=== PATIENT | female | born 1980 | race Caucasian/White ===

== ENCOUNTER 2017-01-11 08:39 | Emergency (ER) | payer MEDICAID ==
[~2017-01-11] VITALS: Ht 124.5 cm; Wt 84.0 kg
[~2017-01-11 08:39] MED LIST: [UNRECOGNIZED DRUG - REMARK]
[2017-01-11] MEDS ORDERED: SODIUM CHLORIDE 0.9% 1,000 ML IV ONE (08:58)
[2017-01-11] MEDS ORDERED: KETOROLAC 30MG/ML VIAL IV ONE (09:00)
[2017-01-11 09:17] LABS: BASOPHILS % 0.3 % (0.0-2.0); EOSINOPHILS % 0.9 % (0.0-5.0); HEMATOCRIT. 42.5 % (36.0-48.0); HEMOGLOBIN. 14.2 g/dL (12.0-16.0); LYMPHOCYTES % 22.4 % (20.0-50.0); MEAN CORPUSCULAR HEMOGLOBIN 31.1 pg (28.0-32.0); MEAN CORPUSCULAR VOLUME 92.8 fL (81.0-99.0); MEAN PLATELET VOLUME 7.5 fl (7.4-10.4); MONOCYTES % 6.5 % (2.0-8.0); NEUTROPHILS % 69.9 % (40.0-76.0); PLATELET 241 x1000/uL (130-400); RED BLOOD CELL COUNT 4.59 mill/uL (4.2-5.4); RED CELL DISTRIBUTION WIDTH 12.4 % (11.6-14.6)
[2017-01-11 09:22] LABS: PARTIAL THROMBOPLASTIN TIME 26.8 sec (23.4-31.0); PROTHROMBIN TIME 10.6 sec (9.4-11.6)
[2017-01-11 09:29] LABS: CARBON DIOXIDE 27 mEq/L (21-32); CHLORIDE 106 mEq/L (98-107); TROPONIN I < 0.02 ng/mL (0.00-0.04)
[2017-01-11 09:53] LABS: HCG SCREEN NEGATIVE
[2017-01-11] MEDS ORDERED: POTASSIUM CHLORIDE 20MEQ TABLET SR PO ONE (10:15)
[2017-01-11 14:44] VITALS: BP 124/69
== END 2017-01-11 14:49 | disposition home or self-care (01) ==
LOC: ER 08:57
DX: M54.12 Radiculopathy, cervical region (principal); R07.9 Chest pain, unspecified
CPT/HCPCS: 36415; 71010; 72050; 80053; 83690; 83880; 84484; 84703; 85025; 85610; 85730; 93005; 96361; 96374; 99285; J1885; J7030

== ENCOUNTER 2018-05-23 17:37 | Emergency (ER) | payer MEDICAID ==
[~2018-05-23] VITALS: Ht 162.6 cm; Wt 62.0 kg
[2018-05-23 21:25] LABS: BASOPHILS % 0.3 % (0.0-2.0); EOSINOPHILS % 1.3 % (0.0-5.0); HEMATOCRIT. 36.5 % (36.0-48.0); HEMOGLOBIN. 12.1 g/dL (12.0-16.0); LYMPHOCYTES % 25.7 % (20.0-50.0); MEAN CORPUSCULAR HEMOGLOBIN 30.3 pg (28.0-32.0); MEAN CORPUSCULAR VOLUME 91.3 fL (81.0-99.0); MEAN PLATELET VOLUME 7.5 fl (7.4-10.4); MONOCYTES % 7.9 % (2.0-8.0); NEUTROPHILS % 64.8 % (40.0-76.0); PLATELET 294 x1000/uL (130-400); RED CELL DISTRIBUTION WIDTH 13.3 % (11.6-14.6)
[2018-05-23 21:30] LABS: CHLORIDE 111 mEq/L (98-107)
[2018-05-23 21:38] LABS: CREATINE KINASE 68 IU/L (26-192)
[2018-05-23 21:47] LABS: CLARITY URINE TURBID (CLEAR); COLOR URINE YELLOW (YELLOW); KETONES URINE NEGATIVE (NEGATIVE); LEUKOCYTE ESTERASE URINE 2+ (NEGATIVE); NITRITE URINE NEGATIVE (NEGATIVE); OCCULT BLOOD URINE NEGATIVE (NEGATIVE); PROTEIN URINE NEGATIVE (NEGATIVE); SPECIFIC GRAVITY URINE 1.019 (1.005-1.030)
[2018-05-23 22:20] VITALS: BP 105/77
== END 2018-05-23 22:32 | disposition home or self-care (01) ==
LOC: ER 17:37
DX: G72.9 Myopathy, unspecified (principal); N39.0 Urinary tract infection, site not specified; I10 Essential (primary) hypertension
CPT/HCPCS: 36415; 80048; 81025; 82550; 99283

== ENCOUNTER 2019-06-26 13:26 | Inpatient (IN) | payer MEDICAID ==
[~2019-06-26] VITALS: Ht 157.5 cm; Wt 76.3 kg
[2019-06-26] MEDS ORDERED: KETOROLAC 30MG/ML VIAL IV STA (15:58)
[2019-06-26 16:25] LABS: BASOPHILS % 0.3 % (0.0-2.0); EOSINOPHILS % 0.5 % (0.0-5.0); HEMATOCRIT. 39.9 % (36.0-48.0); HEMOGLOBIN. 13.8 g/dL (12.0-16.0); LYMPHOCYTES % 13.7 % (20.0-50.0); MEAN CORPUSCULAR HEMOGLOBIN 32.1 pg (28.0-32.0); MEAN CORPUSCULAR VOLUME 92.5 fL (81.0-99.0); MEAN PLATELET VOLUME 7.5 fl (7.4-10.4); MONOCYTES % 4.9 % (2.0-8.0); NEUTROPHILS % 80.6 % (40.0-76.0); PLATELET 305 x1000/uL (130-400); RED BLOOD CELL COUNT 4.31 mill/uL (4.2-5.4); RED CELL DISTRIBUTION WIDTH 14.1 % (11.6-14.6)
[2019-06-26 16:29] LABS: HCG SCREEN NEGATIVE
[2019-06-26 16:30] LABS: CHLORIDE 106 mEq/L (98-107)
[2019-06-26 16:31] LABS: INR 0.9; PROTHROMBIN TIME 10.2 sec (9.6-11.0)
[2019-06-26 16:48] LABS: CLARITY URINE CLEAR (CLEAR); COLOR URINE ORANGE (YELLOW); KETONES URINE NEGATIVE (NEGATIVE); LEUKOCYTE ESTERASE URINE TRACE (NEGATIVE); NITRITE URINE POSITIVE (NEGATIVE); OCCULT BLOOD URINE NEGATIVE (NEGATIVE); PROTEIN URINE NEGATIVE (NEGATIVE); SPECIFIC GRAVITY URINE 1.008 (1.005-1.030)
[2019-06-26] MEDS ORDERED: CEFTRIAXONE 1 G PREMIX 50 ML IV ONE (18:15)
[2019-06-26] MEDS ORDERED: IOHEXOL-300 100 ML BOTTLE ONE (19:07)
[2019-06-26] MEDS ORDERED: MORPHINE SULFATE 2 MG/ML CPJ (NOT FOR IM USE) IV ONE (20:45)
[2019-06-26] MEDS ORDERED: SODIUM CHLORIDE 0.9% 1,000 ML IV ONE (20:45)
[2019-06-27] MEDS ORDERED: MORPHINE SULFATE 4 MG/ML CPJ (NOT FOR IM USE) IV PRN (01:25)
[2019-06-27] MEDS ORDERED: SODIUM CHLORIDE 0.9% 1,000 ML IV ONE ×2 (01:26→15:30)
[2019-06-27 04:30] VITALS: BP 90/35
[2019-06-27] MEDS ORDERED: IBUP-2077 PO (06:22)
[2019-06-27] MEDS: SODIUM CHLORIDE 0.9% 1,000 ML IV SCH ×2 (06:45→16:45)
[2019-06-27 08:00] VITALS: BP 94/61
[2019-06-27] MEDS: HYDROCODONE/ACETAMINOPHEN 10/325MG TABLET PO PRN (08:23)
[2019-06-27 12:00] VITALS: BP 97/57
[2019-06-27] MEDS: MORPHINE SULFATE 2 MG/ML CPJ (NOT FOR IM USE) IV PRN (12:46)
[2019-06-27] MEDS ORDERED: FENTANYL CITRATE/PF 50MCG/ML 2ML VIAL ONE (14:18)
[2019-06-27] MEDS ORDERED: MIDAZOLAM HCL 2 MG/2 ML VIAL ONE (14:19)
[2019-06-27] MEDS ORDERED: LIDOCAINE HCL 1% 20ML VIAL (Pyxis) INJ ONE (14:20)
[2019-06-27] MEDS ORDERED: PROPOFOL 200MG/20ML VIAL IV ONE (14:20)
[2019-06-27] MEDS ORDERED: EPHEDRINE SULFATE 50MG/ML VIAL ONE (14:22)
[2019-06-27] MEDS ORDERED: SODIUM CHLORIDE 0.9% 10ML VIAL ONE (14:22)
[2019-06-27] MEDS ORDERED: ROCURONIUM BROMIDE 10MG/ML VIAL 5ML IV ONE (14:32)
[2019-06-27] MEDS ORDERED: METOCLOPRAMIDE HCL 10MG/2ML VIAL ONE (14:45)
[2019-06-27] MEDS ORDERED: ONDANSETRON HCL 4MG/2ML INJ ONE (14:45)
[2019-06-27] MEDS ORDERED: LEVO500T2 MT (15:25)
[2019-06-27] MEDS ORDERED: IBUP-2030 MT (15:25)
[2019-06-27] MEDS ORDERED: MORPHINE SULFATE 2 MG/ML CPJ (NOT FOR IM USE) IV PRN (15:30)
[2019-06-27] MEDS ORDERED: MEPERIDINE HCL/PF 25MG/ML CPJ IV PRN (15:30)
[2019-06-27] MEDS ORDERED: ONDANSETRON HCL 4MG/2ML INJ IV PRN (15:30)
[2019-06-27] MEDS ORDERED: HYDROMORPHONE HCL/PF 2MG/ML CPJ IV PRN (15:30)
[2019-06-27 16:00] VITALS: BP 98/56
[2019-06-27 17:58] VITALS: BP 98/56
[2019-06-27 20:48] VITALS: BP 88/45
[2019-06-27] MEDS: CEFTRIAXONE 1 G PREMIX 50 ML IV SCH (21:38)
[2019-06-28] VITALS (7 sets, daily range): BP systolic 91–98; BP diastolic 54–70
[2019-06-28] MEDS: SODIUM CHLORIDE 0.9% 1,000 ML IV SCH ×3 (02:45→22:32)
[2019-06-28 07:28] LABS: CHLORIDE 108 mEq/L (98-107)
[2019-06-28 07:44] LABS: BASOPHILS % 0.4 % (0.0-2.0); EOSINOPHILS % 1.3 % (0.0-5.0); HEMATOCRIT. 34.9 % (36.0-48.0); HEMOGLOBIN. 12.2 g/dL (12.0-16.0); LYMPHOCYTES % 25.1 % (20.0-50.0); MEAN CORPUSCULAR HEMOGLOBIN 32.5 pg (28.0-32.0); MEAN PLATELET VOLUME 7.6 fl (7.4-10.4); MONOCYTES % 7.3 % (2.0-8.0); NEUTROPHILS % 65.9 % (40.0-76.0); PLATELET 254 x1000/uL (130-400); RED BLOOD CELL COUNT 3.75 mill/uL (4.2-5.4); RED CELL DISTRIBUTION WIDTH 13.8 % (11.6-14.6)
[2019-06-28] MEDS ORDERED: SODIUM CHLORIDE 0.9% 500 ML IV SCH (08:15)
[2019-06-28] MEDS: HYDROCODONE/ACETAMINOPHEN 10/325MG TABLET PO PRN ×2 (14:28→21:21)
[2019-06-28] MEDS: CEFTRIAXONE 1 G PREMIX 50 ML IV SCH (21:12)
[2019-06-29] VITALS: BP 92/54
[2019-06-29 04:00] VITALS: BP 95/58
[2019-06-29] MEDS ORDERED: NA PHOS,M-B/NA PHOS,DI-BA ENEMA 118ML PR ONE (07:00)
[2019-06-29] MEDS ORDERED: NA PHOS,M-B/NA PHOS,DI-BA ENEMA 118ML PR PRN (07:30)
[2019-06-29 08:00] VITALS: BP_SYST 176; BP_SYST 99; BP_DIAS 63; BP_DIAS 71
[2019-06-29] MEDS: SODIUM CHLORIDE 0.9% 1,000 ML IV SCH (08:33)
[2019-06-29] MEDS ORDERED: DOCUSATE SODIUM 250MG CAPSULE PO ONE (09:00)
[2019-06-29] MEDS ORDERED: DOCUSATE SODIUM 250MG CAPSULE PO SCH (09:00)
[2019-06-29] MEDS: MORPHINE SULFATE 2 MG/ML CPJ (NOT FOR IM USE) IV PRN (09:54)
[2019-06-29 12:00] VITALS: BP 94/55
[2019-06-29] MEDS ORDERED: HYDR-4001 MT (13:58)
[2019-06-29] MEDS ORDERED: LACTULOSE 20G/30ML UDC PO SCH (14:00)
[2019-07-11 20:52] LABS: CALC OXALATE DIHYDRATE 10 %; CALC OXALATE MONOHYDRATE 90 %; CALCULI SIZE 4x2 mm; CALCULI WEIGHT 19 mg
== END 2019-06-29 16:39 | disposition home or self-care (01) | DRG 463 ==
LOC: ER 13:26 → 6WST 20:36 → EDBEDREQ 20:57 → ENRESERV 06-27 03:49
PROVIDERS: ADMIT Internal Medicine; ATTEND Internal Medicine
PROC: 0TF78ZZ Fragmentation in Left Ureter, Via Natural or Artificial Opening Endoscopic (ICD-10-PCS; principal; 2019-06-27)
PROC: 0T778DZ Dilation of Left Ureter with Intraluminal Device, Via Natural or Artificial Opening Endoscopic (ICD-10-PCS; 2019-06-27)
PROC: BT1F1ZZ Fluoroscopy of Left Kidney, Ureter and Bladder using Low Osmolar Contrast (ICD-10-PCS; 2019-06-27)
DX: N13.6 Pyonephrosis (principal); E66.9 Obesity, unspecified; Z98.891 History of uterine scar from previous surgery; Z68.30 Body mass index [BMI] 30.0-30.9, adult; Z71.3 Dietary counseling and surveillance; Z98.51 Tubal ligation status; Z03.818 Encounter for observation for suspected exposure to other biological agents ruled out
CPT/HCPCS: 36415; 74177; 74420; 80048; 80053; 81003; 82360; 84703; 85025; 88300; 99285; C1769; C2617; J0696; J1885; J2250; J2270; J2405; J2704; J2765; J3010; J3490; J7030; Q9967; U0003

== ENCOUNTER 2022-12-20 11:00 | Emergency (ER) | payer MEDICAID, OTHER ==
[~2022-12-20] VITALS: Ht 165.1 cm; Wt 75.0 kg
[~2022-12-20 11:00] MED LIST changes: +HYDR-4001 MT; +IBUP-2030 MT; +IBUP-2077 PO; +LEVO500T2 MT; -[UNRECOGNIZED DRUG - REMARK]
[2022-12-20 11:07] VITALS: TEMP 99; O2SAT 100
[2022-12-20 11:52] LABS: CLARITY URINE CLOUDY (CLEAR); COLOR URINE YELLOW (YELLOW); GLUCOSE URINE NEGATIVE (NEGATIVE); KETONES URINE NEGATIVE (NEGATIVE); LEUKOCYTE ESTERASE URINE 3+ (NEGATIVE); NITRITE URINE NEGATIVE (NEGATIVE); OCCULT BLOOD URINE 2+ (NEGATIVE); PH URINE 8.5 (4.5-8.0); PROTEIN URINE NEGATIVE (NEGATIVE); SPECIFIC GRAVITY URINE 1.008 (1.005-1.030)
[2022-12-20] MEDS ORDERED: HYDROCODONE/ACETAMINOPHEN 10/325MG TABLET PO ONE (12:00)
[2022-12-20 12:08] LABS: BACTERIA URINE 1+; RBC URINE 0-2 /hpf (0-2); WBC URINE 15-25 /hpf (0-2)
[2022-12-20 12:09] LABS: SQUAMOUS EPITHELIAL CELL URINE 1+ /lpf (RARE/1+)
[2022-12-20 12:15] VITALS: BP 129/80; PULSE 89; RESP 18
[2022-12-20] MEDS ORDERED: KETOROLAC 30MG/ML VIAL IM ONE (12:15)
[2022-12-20 12:47] LABS: BASOPHILS % 0.3 % (0.0-2.0); EOSINOPHILS % 0.4 % (0.0-5.0); HEMATOCRIT. 39.4 % (36.0-48.0); HEMOGLOBIN. 12.8 g/dL (12.0-16.0); LYMPHOCYTES % 16.7 % (20.0-50.0); MEAN CORPUSCULAR HGB CONC 32.6 g/dL (31.0-37.0); MEAN PLATELET VOLUME 7.6 fl (7.4-10.4); MONOCYTES % 5.4 % (2.0-8.0); NEUTROPHILS % 77.2 % (40.0-76.0); PLATELET 294 x1000/uL (130-400); RED BLOOD CELL COUNT 4.42 mill/uL (4.2-5.4); RED CELL DISTRIBUTION WIDTH 15.1 % (11.6-14.6); WHITE BLOOD COUNT 8.2 x1000/uL (4.5-11.0)
[2022-12-20 13:02] LABS: CHLORIDE 110 mEq/L (98-107); INDEX HEMOLYSI 1 (1-3); INDEX ICTERIC 1 (1-4); INDEX LIPEMIC 1 (1-3); POTASSIUM 3.8 mEq/L (3.5-5.1); SODIUM 141 mEq/L (136-145)
[2022-12-20 13:05] LABS: ALBUMIN 3.8 g/dL (3.4-5.0); CALCIUM 8.7 mg/dL (8.5-10.1)
[2022-12-20] MEDS ORDERED: LEVO750T68 MT (13:05)
[2022-12-20 13:11] LABS: ALANINE AMINOTRANSFERASE 26 IU/L (13-61); ASPARTATE AMINOTRANSFERASE 20 IU/L (15-37); BILIRUBIN TOTAL 0.4 mg/dL (0.1-1.0); CARBON DIOXIDE 27 mEq/L (21-32); CREATININE 0.6 mg/dL (0.6-1.3); GLUCOSE 97 mg/dL (70-105); PROTEIN TOTAL 8.2 g/dL (6.0-8.3); UREA NITROGEN BLOOD 6 mg/dL (7-21)
[2022-12-20] MEDS ORDERED: CEFTRIAXONE SODIUM 1 G/VIAL IM ONE (13:15)
[2022-12-20] MEDS ORDERED: LIDOCAINE HCL/PF 1% 10 MG/ML 5ML VIAL INFIL ONE (13:30)
== END 2022-12-20 21:02 | disposition short-term general hospital (02) ==
LOC: ER 11:00
DX: N12 Tubulo-interstitial nephritis, not specified as acute or chronic (principal); Z87.442 Personal history of urinary calculi; Z98.890 Other specified postprocedural states
CPT/HCPCS: 36415; 74176; 80053; 81003; 81025; 85025; 87077; 87186; 96372; 99285; J0696; J1885; J3490